=== PATIENT | male | born 1990 | race Two or more races ===

== ENCOUNTER 2024-06-25 20:35 | Emergency (ER) | payer OTHER ==
[~2024-06-25] VITALS: Ht 172.7 cm; Wt 61.2 kg
[2024-06-26 00:25] VITALS: BP 130/82; TEMP 98.8; O2SAT 99
== END 2024-06-26 00:26 | disposition home or self-care (01) ==
LOC: ER 20:42
DX: M54.50 Low back pain, unspecified (principal); R51.9 Headache, unspecified; M54.2 Cervicalgia; R07.81 Pleurodynia; V43.52XA Car driver injured in collision with other type car in traffic accident, initial encounter; Y92.410 Unspecified street and highway as the place of occurrence of the external cause; Y92.89 Other specified places as the place of occurrence of the external cause; Y99.8 Other external cause status
CPT/HCPCS: 70450-TC; 71111-TC; 72100-TC